=== PATIENT | female | born 1945 | race Two or more races ===

== ENCOUNTER 2019-05-29 10:25 | Outpatient (CLI) | payer BC | END 2019-05-29 23:59 | disposition home or self-care (01) | LOC: MRI 10:25 | PROVIDERS: ATTEND Family Medicine | DX: M48.07 Spinal stenosis, lumbosacral region (principal); M43.17 Spondylolisthesis, lumbosacral region; M51.26 Other intervertebral disc displacement, lumbar region; M89.38 Hypertrophy of bone, other site; M84.48XA Pathological fracture, other site, initial encounter for fracture; M43.8X4 Other specified deforming dorsopathies, thoracic region | CPT/HCPCS: 72148-TC ==

== ENCOUNTER 2019-06-26 15:30 | Outpatient (CLI) | payer BC | END 2019-06-26 23:59 | disposition home or self-care (01) | LOC: MSC 15:30 | PROVIDERS: ATTEND Anesthesiology | DX: M46.96 Unspecified inflammatory spondylopathy, lumbar region (principal); M51.36 Other intervertebral disc degeneration, lumbar region; M51.26 Other intervertebral disc displacement, lumbar region; M47.27 Other spondylosis with radiculopathy, lumbosacral region; M62.830 Muscle spasm of back; M17.11 Unilateral primary osteoarthritis, right knee; Z79.899 Other long term (current) drug therapy ==

== ENCOUNTER → 2019-07-06 | Day surgery (SDC) | payer BC ==
[~2019-07-06] MED LIST: BUPIVACAINE 0.25% 75 MG/30 ML VIAL ONE; IOHEXOL 240MG/ML 50 ML IV ONE; IV LR 1000 ML 500 ML IV PRN; LIDOCAINE HCL/PF 1% 30 ML SDV ONE; methylPREDNISolone ACETATE 80 MG/ML VIAL ONE
== END | disposition home or self-care (01) ==
LOC: DS 05:47
PROVIDERS: ATTEND Anesthesiology
DX: M54.5 Low back pain (principal); M47.26 Other spondylosis with radiculopathy, lumbar region; I10 Essential (primary) hypertension; M19.90 Unspecified osteoarthritis, unspecified site; G89.29 Other chronic pain; Z82.49 Family history of ischemic heart disease and other diseases of the circulatory system; Z98.84 Bariatric surgery status; Z98.890 Other specified postprocedural states; Z86.73 Personal history of transient ischemic attack (TIA), and cerebral infarction without residual deficits; Z79.899 Other long term (current) drug therapy
CPT/HCPCS: 62323; 72100; A6209; J1040; J2704; J3490 ×3; Q9966

== ENCOUNTER 2019-11-29 15:14 | Outpatient (CLI) | payer MEDICARE, BC | END 2019-11-29 23:59 | disposition home or self-care (01) | LOC: RAD 15:14 | PROVIDERS: ATTEND Family Medicine | DX: I82.499 Acute embolism and thrombosis of other specified deep vein of unspecified lower extremity (principal); M79.89 Other specified soft tissue disorders | CPT/HCPCS: 93970-TC ==